=== PATIENT | male | born 1955 | race Caucasian/White ===

== ENCOUNTER → 2017-08-27 | Outpatient (CLI) | payer MEDICARE, OTHER ==
--- NOTE | 2017-08-27 16:11 | NM ---
EXAMINATION TYPE: NM bone 3 phase DATE OF EXAM: 08/27/2017 COMPARISON: Prior bone scan dated 06/05/2010 HISTORY: R 93.8 Triple phase bone scintigraphy was performed following the injection of 24.1 mCi Tc 99m MDP. Immedia te images and 3 hours post injection images acquired. FINDINGS: Increased blood flow and blood pool imaging to the mid foot on the right compared to the left. Delaye d imaging also shows uptake at this level. Uptake in the first digit of the right foot is likely due to osteoarthritic change. IMPRESSION: Degenerative changes are suspected. Indeterminate midfoot uptake on the right, difficult to exclude i nfection. Foot MRI of benefit.
== END | disposition home or self-care (01) ==
LOC: RADNMMAIN 10:03
PROVIDERS: ATTEND Internal Medicine
DX: R93.7 Abnormal findings on diagnostic imaging of other parts of musculoskeletal system (principal)
CPT/HCPCS: 78315; A9503

== ENCOUNTER 2017-10-22 11:32 | Observation (INO) | payer MEDICARE, OTHER ==
[2017-10-22] MEDS ORDERED: NITROGLYCERIN OINT 1 INCH/GM PACKET TOPICAL STA (11:43)
[2017-10-22] MEDS ORDERED: ASPIRIN 81 MG PO STA (11:43)
--- NOTE | 2017-10-22 11:50 | ED ---
General Adult HPI - General Chief complaint: Chest Pain Stated complaint: chest pain Time Seen by Provider: 10/22/17 11:36 Source: patient, EMS, RN notes reviewed, Caregiver Mode of arrival: EMS Limitations: altered mental status - History of Present Illness Initial comments: Patient is a pleasant [age]-year-old male presenting to the emergency Department with chest discomfort. Onset of symptoms was around an hour prior to arrival. No history of similar symptoms previously. Discomfort is described as an ache. There is no radiation. Discomfort is left lower chest. No associated dyspnea, nausea, or diaphoresis. Discomfort was moderate however now is mild. Patient has limited knowledge of his past medical history. - Related Data Home Medications Medication Instructions Recorded Confirmed Amiodarone [Cordarone] 100 mg PO DAILY 07/28/14 02/03/17 Aspirin 81 mg PO DAILY 07/28/14 02/03/17 Cyanocobalamin [Vitamin B-12] 1,000 mcg PO DAILY 07/28/14 02/03/17 Ezetimibe [Zetia] 10 mg PO HS 07/28/14 02/03/17 Furosemide [Lasix] 20 mg PO DAILY 07/28/14 02/03/17 Loratadine [Claritin] 10 mg PO DAILY 07/28/14 02/03/17 Metoprolol Tartrate [Lopressor] 25 mg PO BID 07/28/14 02/03/17 Potassium Chloride [Klor-Con 10] 10 meq PO DAILY 07/28/14 02/03/17 Pravastatin Sodium [Pravachol] 40 mg PO HS 07/28/14 02/03/17 QUEtiapine [SEROquel] 200 mg PO BID 07/28/14 02/03/17 Triamcinolone 0.1% Cream [Kenalog 1 applic TOPICAL DAILY 07/28/14 02/03/17 0.1% Cream] Warfarin [Coumadin] 5 mg PO [id number] 07/28/14 02/03/17 Vitamin B Complex 1 cap PO DAILY 09/27/14 02/03/17 Cholecalciferol (Vitamin D3) 2,000 unit PO DAILY 02/03/17 02/03/17 [Vitamin D3] Clotrimazole Cream [Lotrimin Cream] 1 applic TOPICAL BID 02/03/17 02/03/17 Fluvastatin Sodium 20 mg PO MOWEFR 02/03/17 02/03/17 Hydrocerin Cream 1 applic TOPICAL DAILY 02/03/17 02/03/17 Warfarin Sodium [Coumadin] 7.5 mg PO HOLLOWAY 02/03/17 02/03/17 Previous Rx's Medication Instructions Recorded Losartan [Cozaar] 12.5 mg PO DAILY #90 tab 06/03/15 ceFAZolin [Kefzol] 2 gm IVP Q8HR #90 bag 02/09/17 Acetaminophen Tab [Tylenol] 650 mg PO Q4HR PRN tab 02/10/17 Ipratropium-Albuterol Nebulize 3 ml INHALATION RT-QID ampul.neb 02/10/17 [Duoneb 0.5 mg-3 mg/3 ml Soln] Pantoprazole [Protonix] 40 mg PO DAILY tablet. 02/10/17 Allergies Allergy/AdvReac Type Severity Reaction Status Date / Time No Known Allergies Allergy Verified 10/22/17 11:41 Review of Systems ROS Statement: Those systems with pertinent positive or pertinent negative responses have been documented in the HPI. ROS Other: All systems not noted in ROS Statement are negative. Constitutional: Denies: fever Eyes: Denies: eye pain ENT: Denies: ear pain Respiratory: Denies: cough Cardiovascular: Reports: chest pain Endocrine: Denies: fatigue Gastrointestinal: Denies: abdominal pain Genitourinary: Denies: dysuria Musculoskeletal: Denies: back pain Skin: Denies: rash Neurological: Denies: weakness Past Medical History Past Medical History: Atrial Fibrillation, Heart Failure, COPD, Dementia, Hyperlipidemia, Hypertension, Memory Impairment, Pneumonia, Vascular Disorder Additional Past Medical History / Comment(s): Mild retardation, severe short term memory issues, vascular dementia with past delusions, needs alot of reminding and prompting, has a legal public guardian, nonischemic cardiomyopathy , chronic CHF, VF with cardiac arrest in 2005 (AICD placed), past cellulitis bilateral lower legs with venous ulcerations-now healed, incontinent of urine at times-prompt to remind to use bathroom and he will go on toilet. History of Any Multi-Drug Resistant Organisms: None Reported, MRSA Date of last positivie culture/infection: 2015 MDRO Source:: AICD site per caregiver. Past Surgical History: AICD, Cardiac Valve Replacement, Heart Catheterization Additional Past Surgical History / Comment(s): 2006 AICD with gen change in 2016 , aortic valve replacement, mitral valve repain, colonoscopy. Past Anesthesia/Blood Transfusion Reactions: No Reported Reaction Additional Past Anesthesia/Blood Transfusion Reaction / Comment(s): unknown family hx or blood transfusion hx Type of Cardiac Device: Permanent Pacemaker Device Placement Date:: 2005 implanted with gen change in 2015 Past Psychological History: Anxiety, Depression Smoking Status: Never smoker Past Alcohol Use History: None Reported Past Drug Use History: None Reported - Past Family History Father History Unknown: Yes Mother History Unknown: Yes Family Medical History: No Reported History General Exam Limitations: altered mental status General appearance: alert, in no apparent distress Head exam: Present: atraumatic Eye exam: Present: normal appearance, PERRL ENT exam: Present: normal oropharynx Neck exam: Present: normal inspection Respiratory exam: Present: normal lung sounds bilaterally Cardiovascular Exam: Present: bradycardia, systolic murmur Expanded Peripheral pulses: 2+: Radial (R), Radial (L), Posterior Tibialis (R), Posterior Tibialis (L) GI/Abdominal exam: Present: soft. Absent: tenderness Extremities exam: Absent: pedal edema, calf tenderness Neurological exam: Present: alert Psychiatric exam: Present: normal affect, normal mood Skin exam: Absent: rash Course Vital Signs 10/22/17 11:39 Temperature 97.1 F L Pulse Rate 51 L Respiratory 16 Rate Blood Pressure 102/60 O2 Sat by Pulse 95 Oximetry EKG Findings - EKG Comments: EKG Findings:: Sinus bradycardia 51. MS 152. QRS 102. QT 466. QTc 429. Normal axis. Normal QRS. Lateral T wave inversion. Medical Decision Making - Medical Decision Making Patient reevaluated and resting comfortably in bed. Patient and liability analyst updated on results and plan. Dr. Cerna has been paged for admission for Dr. Miller. - Lab Data Result diagrams: 10/22/17 11:46 10/22/17 11:46 Lab Results 10/22/17 10/22/17 10/22/17 Range/Units 11:46 11:46 11:46 WBC 6.5 (3.8-10.6) k/uL RBC 5.08 (4.30-5.90) m/uL Hgb 14.6 (13.0-17.5) gm/dL Hct 45.0 (39.0-53.0) % MCV 88.6 (80.0-100.0) fL MCH 28.8 (25.0-35.0) pg MCHC 32.5 (31.0-37.0) g/dL RDW 14.8 (11.5-15.5) % Plt Count 225 (150-450) k/uL Neutrophils % 57 % Lymphocytes % 32 % Monocytes % 6 % Eosinophils % 2 % Basophils % 1 % Neutrophils # 3.7 (1.3-7.7) k/uL Lymphocytes # 2.1 (1.0-4.8) k/uL Monocytes # 0.4 (0-1.0) k/uL Eosinophils # 0.2 (0-0.7) k/uL Basophils # 0.1 (0-0.2) k/uL PT (9.0-12.0) sec INR (<1.2) APTT (22.0-30.0) sec Sodium 140 (137-145) mmol/L Potassium 4.5 (3.5-5.1) mmol/L Chloride 107 (98-107) mmol/L Carbon Dioxide 24 (22-30) mmol/L Anion Gap 9 mmol/L BUN 15 (9-20) mg/dL Creatinine 0.90 (0.66-1.25) mg/dL Est GFR (CKD-EPI)AfAm >90 (>60 ml/min/1.73 sqM) Est GFR (CKD-EPI)NonAf >90 (>60 ml/min/1.73 sqM) Glucose 99 (74-99) mg/dL Calcium 8.6 (8.4-10.2) mg/dL Magnesium 2.1 (1.6-2.3) mg/dL Total Bilirubin 0.6 (0.2-1.3) mg/dL AST 22 (17-59) U/L ALT 30 (21-72) U/L Alkaline Phosphatase 97 (38-126) U/L Total Creatine Kinase 36 L (55-170) U/L CK-MB (CK-2) 0.7 (0.0-2.4) ng/mL CK-MB (CK-2) Rel Index 1.9 Troponin I <0.012 (0.000-0.034) ng/mL Total Protein 6.8 (6.3-8.2) g/dL Albumin 3.7 (3.5-5.0) g/dL 10/22/17 Range/Units 11:46 WBC (3.8-10.6) k/uL RBC (4.30-5.90) m/uL Hgb (13.0-17.5) gm/dL Hct (39.0-53.0) % MCV (80.0-100.0) fL MCH (25.0-35.0) pg MCHC (31.0-37.0) g/dL RDW (11.5-15.5) % Plt Count (150-450) k/uL Neutrophils % % Lymphocytes % % Monocytes % % Eosinophils % % Basophils % % Neutrophils # (1.3-7.7) k/uL Lymphocytes # (1.0-4.8) k/uL Monocytes # (0-1.0) k/uL Eosinophils # (0-0.7) k/uL Basophils # (0-0.2) k/uL PT 18.0 H (9.0-12.0) sec INR 2.0 H (<1.2) APTT 32.6 H (22.0-30.0) sec Sodium (137-145) mmol/L Potassium (3.5-5.1) mmol/L Chloride (98-107) mmol/L Carbon Dioxide (22-30) mmol/L Anion Gap mmol/L BUN (9-20) mg/dL Creatinine (0.66-1.25) mg/dL Est GFR (CKD-EPI)AfAm (>60 ml/min/1.73 sqM) Est GFR (CKD-EPI)NonAf (>60 ml/min/1.73 sqM) Glucose (74-99) mg/dL Calcium (8.4-10.2) mg/dL Magnesium (1.6-2.3) mg/dL Total Bilirubin (0.2-1.3) mg/dL AST (17-59) U/L ALT (21-72) U/L Alkaline Phosphatase (38-126) U/L Total Creatine Kinase (55-170) U/L CK-MB (CK-2) (0.0-2.4) ng/mL CK-MB (CK-2) Rel Index Troponin I (0.000-0.034) ng/mL Total Protein (6.3-8.2) g/dL Albumin (3.5-5.0) g/dL - Radiology Data Radiology results: image reviewed (Chest x-ray shows cardiomegaly. There is also some central vascular congestion) Disposition Clinical Impression: Chest pain Disposition: ADMITTED IP TO THIS HOSP Is patient prescribed a controlled substance at d/c from ED?: No Referrals: Silver Garvin MD [Primary Care Provider] - 1-2 days Decision Time: 12:34
[2017-10-22 11:58] LABS: Basophils # (A) 0.1 k/uL (0-0.2); Basophils % (A) 1 %; Eosinophils # (A) 0.2 k/uL (0-0.7); Eosinophils % (A) 2 %; HGB 14.6 gm/dL (13.0-17.5); Lymphocytes # (A) 2.1 k/uL (1.0-4.8); Lymphocytes % (A) 32 %; MCH 28.8 pg (25.0-35.0); MCHC 32.5 g/dL (31.0-37.0); MCV 88.6 fL (80.0-100.0); Mean Platelet Volume 7.2; Monocytes # (A) 0.4 k/uL (0-1.0); Monocytes % (A) 6 %; Neutrophils # (A) 3.7 k/uL (1.3-7.7); Neutrophils % (A) 57 %; Platelet Count 225 k/uL (150-450); RBC 5.08 m/uL (4.30-5.90); RDW 14.8 % (11.5-15.5); WBC 6.5 k/uL (3.8-10.6)
[2017-10-22 12:10] LABS: ALT 30 U/L (21-72); AST 22 U/L (17-59); Albumin 3.7 g/dL (3.5-5.0); Alkaline Phosphatase 97 U/L (38-126); Anion Gap 9 mmol/L; Blood Urea Nitrogen 15 mg/dL (9-20); Calcium 8.6 mg/dL (8.4-10.2); Carbon Dioxide 24 mmol/L (22-30); Chloride 107 mmol/L (98-107); Glucose 99 mg/dL (74-99); Magnesium 2.1 mg/dL (1.6-2.3); Potassium 4.5 mmol/L (3.5-5.1); Sodium 140 mmol/L (137-145); Total Bilirubin 0.6 mg/dL (0.2-1.3); Total Protein 6.8 g/dL (6.3-8.2)
[2017-10-22 12:16] LABS: Partial Thromboplastin Time 32.6 sec (22.0-30.0)
[2017-10-22 12:18] LABS: Creatine Kinase 36 U/L (55-170)
--- NOTE | 2017-10-22 12:19 | XR ---
EXAMINATION TYPE: XR chest 2V DATE OF EXAM: 10/22/2017 COMPARISON: Chest x-ray February 06, 2017 HISTORY: Chest pain today TECHNIQUE: Frontal and lateral views of the chest are obtained. FINDINGS: The cardiac silhouette size remains enlarged with single lead pacemaker/AICD. Curvilinear surgical change to cardiac valve is redemonstrated. There is new mild to moderate central vascular c ongestion. There is no new suspicious focal airspace opacity or pneumothorax seen bilaterally The oss eous structures are intact. IMPRESSION: Suspect CHF exacerbation as there is cardiomegaly with new mild to moderate central vasc ular congestion felt present. Correlate clinically.
[2017-10-22 12:29] LABS: Creatine Kinase MB 0.7 ng/mL (0.0-2.4); Troponin I <0.012 ng/mL (0.000-0.034)
[2017-10-22] MEDS ORDERED: NITROGLYCERIN SL TABS 0.4 MG TAB SUBLINGUAL PRN (12:34)
[2017-10-22] MEDS ORDERED: NITROGLYCERIN OINT 1 INCH/GM PACKET TOPICAL SCH (18:00)
[2017-10-22 18:27] LABS: Creatine Kinase 38 U/L (55-170)
[2017-10-22 18:37] LABS: Creatine Kinase MB 0.7 ng/mL (0.0-2.4); Troponin I <0.012 ng/mL (0.000-0.034)
[2017-10-22] MEDS ORDERED: EZETIMIBE 10 MG TAB PO SCH (21:00)
[2017-10-22] MEDS ORDERED: WARFARIN 5 MG TAB PO SCH (21:00)
[2017-10-22] MEDS ORDERED: CYANOCOBALAMIN 500 MCG TAB PO SCH (21:00)
[2017-10-22] MEDS ORDERED: CHOLECALCIFEROL 1,000 UNIT TAB PO SCH (21:00)
[2017-10-22] MEDS ORDERED: PRAVASTATIN SODIUM 40 MG TAB PO SCH (21:00)
[2017-10-22] MEDS ORDERED: NON-FORMULARY DRUG (Vitamin B Complex [Vitamin B Complex] 1 CAP) PO SCH (21:00)
[2017-10-22] MEDS: METOPROLOL TARTRATE 25 MG TAB PO SCH (21:36)
[2017-10-22] MEDS: QUEtiapine 200 MG TAB PO SCH (21:37)
--- NOTE | 2017-10-22 23:10 | HP ---
HISTORY AND PHYSICAL DATE OF ADMISSION: 10/22/2017 PRESENTING COMPLAINT: Abdominal pain. HISTORY OF PRESENTING COMPLAINT: This is a pleasant 62-year-old patient who is a bit of a limited historian. Patient follows with Dr. Silver Garvin. Per previous notes, he was a resident of [facility] and at that time he had a legal guardian out of [place]. Chronic stable medical conditions include atrial fibrillation congestive heart failure, COPD, some mild retardation, hypertension, hyperlipidemia, aortic valve replacement, mitral valve repair, some incontinence. In the past patient had a cardiac arrest with AICD in place. The patient was brought in by the EMS and patient had complained of chest pain, apparently was holding the left side of his chest wall. Here the patient is holding his hand over his belly and says he has pain there. He states it does not radiate. There is no nausea, vomiting. The patient did tolerate his supper. Patient is not sure if he had a bowel movement. No nausea, vomiting. No fever or chills. REVIEW OF SYSTEMS: CONSTITUTIONAL: None. HEENT: None. RESPIRATORY: None. CARDIOVASCULAR: As above. GASTROINTESTINAL: As above. GENITOURINARY: None. MUSCULOSKELETAL: None. DERMATOLOGICAL: None. HEMATOLOGICAL: None. LYMPHATICS: None. PSYCHIATRY: Forgetful. NEUROLOGICAL: None. PAST MEDICAL HISTORY: 1. Atrial fibrillation. 2. Congestive heart failure. 3. Dementia. 4. Hyperlipidemia. 5. Hypertension. 6. Memory impairment. 7. Mild retardation with short-term memory. Needs a lot of reminding and prompting. 8. Non-ischemic cardiomyopathy. 9. VF with cardiac arrest in 2016. 10.AICD. 11.Incontinent of urine at times. PAST SURGICAL HISTORY: 1. AICD. 2. Cardiac valve replacement. 3. Aortic valve replacement. 4. Mitral valve repair. PSYCH HISTORY: Anxiety and depression. SOCIAL HISTORY: The patient has resided at [facility] for the past 3 years. Telephone number . No smoking. No alcohol. FAMILY HISTORY: Patient cannot tell. HOME MEDICATIONS: 1. Kenalog 0.1% cream 1 application topically daily. 2. Hydrocerin 1 application topically daily. 3. Lotrimin 1 application topically b.i.d. 4. Coumadin 5 mg Wednesday, Wednesday, Wednesday, , Wednesday, Wednesday and 7.5 on Wednesday. 5. Pravachol 40 mg at bedtime. 6. Zetia 10 mg at bedtime. 7. Vitamin D3 2000 units p.o. at bedtime. 8. Vitamin B complex 1 capsule p.o. at bedtime. 9. Seroquel 200 mg p.o. b.i.d. 10.Lopressor 25 p.o. b.i.d. 11.Cozaar 12.5 p.o. daily. 12.Vitamin B12 1000 mcg p.o. at bedtime. 13.Potassium 10 mEq a day. 14.Ativan 0.5 p.o. t.i.d. 15.Cordarone 100 mg p.o. daily. 16.Claritin 10 mg p.o. daily. 17.Lasix 20 mg p.o. daily. 18.Aspirin 81 mg p.o. daily. ALLERGIES: NONE. PHYSICAL EXAMINATION: Temperature 98.2, pulse 61, respiration 16, blood pressure 117/75, pulse ox 93% on room air. GENERAL APPEARANCE: Well built; BMI 35.9. Sitting up on a chair, comfortable. EYES: Pupils equal. Conjunctivae normal. HEENT: External appearance of nose and ears normal. Oral cavity normal. NECK: JVD not raised. Mass not palpable. RESPIRATORY: Effort normal. LUNGS: Fair air entry. CARDIOVASCULAR: First and second sounds normal. No edema. ABDOMEN: Distended, soft. Liver and spleen not palpable. LYMPHATIC: No lymph node palpable in neck or axillae. PSYCHIATRY: Alert and oriented x3. Able to answer simple questions. NEUROLOGICAL: Pupils equal. Cranial nerves grossly intact. Power and sensation grossly intact. INVESTIGATIONS: White count 6.5, hemoglobin 14.6, potassium 4.5. INR is 2. BUN and creatinine are normal. Troponin x2 negative. ProBNP 247. EKG tracing reviewed by me shows normal sinus rhythm, some nonspecific T-wave changes. Chest x-ray film interpreted by me shows some cardiomegaly, maybe some venous prominence. ASSESSMENT: 1. Patient presented with left-sided chest pain complaint at the detention, but here patient is pointing toward his upper abdomen. This may be an episode of dyspepsia, but because of the patient's mild mental retardation, he is not a very reliable historian. Patient's proBNP is only 245. Troponins are negative. EKG is nonspecific. There does not appear to be any CHF exacerbation. 2. Chronic congestive heart failure from diastolic dysfunction, ejection fraction 50% to 55%. 3. Paroxysmal atrial fibrillation, chronically on Coumadin, currently in sinus rhythm. 4. Chronic obstructive pulmonary disease. 5. Chronic mild mental retardation. 6. Hyperlipidemia. 7. Chronic urine incontinence. 8. History of aortic valve replacement and mitral valve repair. PLAN: Home medications are resumed. Will watch the patient overnight. I have discontinued the nitroglycerin paste. The patient is not complaining of any chest pain. The patient is already on Coumadin. Will 4 doses of simethicone for dyspepsia. Watch the patient overnight to see how he does. Patient did tolerate his supper. MMKIML / IJN: [id number] /
[2017-10-22] MEDS: CLOTRIMAZOLE 1% CREAM 15 GM TUBE TOPICAL SCH (23:15)
[2017-10-22 23:47] VITALS: RESP 18
[2017-10-22 23:56] LABS: Creatine Kinase 36 U/L (55-170)
[2017-10-22] MEDS: SIMETHICONE 80 MG CHEWABLE PO SCH (23:58)
[2017-10-23 00:08] LABS: Creatine Kinase MB 0.7 ng/mL (0.0-2.4); Troponin I <0.012 ng/mL (0.000-0.034)
[2017-10-23 07:33] LABS: Cholesterol 192 mg/dL (<200); HDL Cholesterol 23 mg/dL (40-60); LDL Cholesterol,Calculated 132 mg/dL (0-99); Triglycerides 186 mg/dL (<150)
[2017-10-23] MEDS: QUEtiapine 200 MG TAB PO SCH (08:27)
[2017-10-23] MEDS: SIMETHICONE 80 MG CHEWABLE PO SCH ×2 (08:28→13:02)
[2017-10-23] MEDS: LORazepam 0.5 MG TAB PO SCH ×2 (08:28→12:33)
[2017-10-23] MEDS: CLOTRIMAZOLE 1% CREAM 15 GM TUBE TOPICAL SCH (08:32)
[2017-10-23] MEDS ORDERED: TRIAMCINOLONE 0.1% CREAM 80 GM TUBE TOPICAL SCH (09:00)
[2017-10-23] MEDS ORDERED: AMIODARONE 100 MG TAB PO SCH (09:00)
[2017-10-23] MEDS ORDERED: POTASSIUM CHLORIDE ER 10 MEQ TAB.ER.PRT PO SCH (09:00)
[2017-10-23] MEDS ORDERED: LOSARTAN 25 MG TAB PO SCH (09:00)
[2017-10-23] MEDS ORDERED: FUROSEMIDE 20 MG TAB PO SCH (09:00)
[2017-10-23] MEDS ORDERED: ASPIRIN 325 MG TAB PO SCH (09:00)
[2017-10-23] MEDS ORDERED: ASPIRIN 81 MG PO SCH (09:00)
[2017-10-23] MEDS: METOPROLOL TARTRATE 25 MG TAB PO SCH (12:33)
[2017-10-23 16:07] VITALS: BP 114/70; PULSE 56; TEMP 97.9
--- NOTE | 2017-10-24 08:16 | DS ---
DISCHARGE SUMMARY DATE OF ADMISSION: 10/22/2017. DATE OF DISCHARGE: 10/23/2017. FINAL DIAGNOSES: 1. Abdominal pain, probably from dyspepsia. 2. Chronic congestive heart failure from diastolic dysfunction. Ejection fraction 50% to 55%. 3. Paroxysmal atrial fibrillation, chronically on Coumadin, currently in sinus rhythm. 4. Chronic obstructive pulmonary disease. 5. Chronic mild mental retardation. 6. Hyperlipidemia. 7. Chronic urine incontinence. 8. History of aortic and mitral valve repair. HOSPITAL COURSE: This patient who is slightly mentally retarded, presented with what was reported as chest pain. The patient is pointing to his belly. Patient did well here. Did tolerate his diet, up and about. The patient was afebrile. Normal white count. On examination, afebrile, blood pressure 104/70. Lungs are clear. Abdomen soft nontender. DISCHARGE MEDICATIONS: 1. Cordarone 100 mg a day. 2. Aspirin 81 mg a day. 3. Vitamin B12, 1000 mcg p.o. at bedtime. 4. Zetia 10 mg p.o. at bedtime. 5. Lasix 20 mg a day. 6. Lopressor 25 mg p.o. b.i.d. 7. Potassium 10 mEq a day. 8. Pravachol 40 mg at bedtime. 9. Seroquel 200 mg b.i.d. 10.Kenalog 0.1% topical daily. 11.Coumadin 5 mg Wednesday, Wednesday, Wednesday, , Wednesday, Wednesday. 12.Vitamin B complex 1 capsule p.o. at bedtime. 13.Cozaar 12.5 p.o. daily. 14.Vitamin D3, 2000 units p.o. at bedtime. 15.Lotrimin 1 application topical b.i.d. 16.Hydrocerin 1 application topical daily. 17.Coumadin 7.5 p.o. on Wednesday. 18.Ativan 0.5 p.o. t.i.d. 19. 40 mg q.i.d. p.r.n. FOLLOWUP: Follow up with Dr. Garvin in 3 days. DISPOSITION: jail. MMODL / IJN: [id number] /
[2017-10-25] MEDS ORDERED: WARFARIN 7.5 MG TAB PO SCH (18:00)
== END 2017-10-23 17:19 | disposition home or self-care (01) ==
LOC: EC 11:32 → 3OBS 12:35
PROVIDERS: ADMIT Hospitalist; ATTEND Hospitalist
DX: R10.13 Epigastric pain (principal); R07.89 Other chest pain; F70 Mild intellectual disabilities; I11.0 Hypertensive heart disease with heart failure; I50.32 Chronic diastolic (congestive) heart failure; I43 Cardiomyopathy in diseases classified elsewhere; I48.0 Paroxysmal atrial fibrillation; J44.9 Chronic obstructive pulmonary disease, unspecified; F01.50 Vascular dementia, unspecified severity, without behavioral disturbance, psychotic disturbance, mood disturbance, and anxiety; R41.3 Other amnesia; R32 Unspecified urinary incontinence; E78.5 Hyperlipidemia, unspecified; F32.9 Major depressive disorder, single episode, unspecified; F41.9 Anxiety disorder, unspecified; Z79.01 Long term (current) use of anticoagulants; Z79.82 Long term (current) use of aspirin; Z79.899 Other long term (current) drug therapy; Z95.810 Presence of automatic (implantable) cardiac defibrillator; Z95.2 Presence of prosthetic heart valve; Z86.74 Personal history of sudden cardiac arrest; Z87.01 Personal history of pneumonia (recurrent); Z86.14 Personal history of Methicillin resistant Staphylococcus aureus infection
CPT/HCPCS: 99285 ×2; 36415; 93005; 83880; 80061; 80053; 82550; 82553; 83735; 84484; 85025; 85610; 85730; 71046; G0378 ×2

== ENCOUNTER → 2020-01-04 | Outpatient (CLI) | payer MEDICARE, OTHER ==
[2020-01-04 10:05] LABS: Potassium 4.7 mmol/L (3.5-5.1)
[2020-01-04 10:09] LABS: HCT 51.3 % (39.0-53.0); HGB 16.8 gm/dL (13.0-17.5); MCH 29.1 pg (25.0-35.0); MCHC 32.7 g/dL (31.0-37.0); MCV 88.9 fL (80.0-100.0); Mean Platelet Volume 7.9; Platelet Count 273 k/uL (150-450); RBC 5.77 m/uL (4.30-5.90); RDW 14.9 % (11.5-15.5)
== END | disposition home or self-care (01) ==
LOC: LABPAT 09:08
PROVIDERS: ATTEND Internal Medicine
DX: Z01.818 Encounter for other preprocedural examination (principal); I25.10 Atherosclerotic heart disease of native coronary artery without angina pectoris
CPT/HCPCS: 36415; 82565; 84132; 84520; 85027

== ENCOUNTER → 2020-01-10 | Day surgery (SDC) | payer MEDICARE, OTHER ==
[2020-01-05 14:53] VITALS: BMI 37.5
[~2020-01-10] MED LIST: ALPRAZolam 0.25 MG TAB PO PRN; ALPRAZolam 0.5 MG TAB PO PRN; ASPIRIN 325 MG TAB PO STA; ATORVASTATIN 80 MG TAB PO STA; HEPARIN SODIUM 1,000 UN/ML (10ML VL) IV ONE; HEPARIN SODIUM 1,000 UN/ML (10ML VL) ONE; IOPAMIDOL-370 100ML BTL INJ ONE; IOPAMIDOL-370 125ML BTL INJ ONE; IV FLUID CONTINUATION 1,000 ML IV ONE; LIDOCAINE 1% INJ 10MG/ML (20 ML MDV) ONE; LIDOCAINE 1% INJ 10MG/ML (20 ML MDV) SQ ONE; MIDAZOLAM 2 MG/2 ML VIAL IVP ONE; NITROGLYCERIN SL TABS 0.4 MG TAB SUBLINGUAL PRN; RX INFO: IV CONTRAST WAS GIVEN 1 EACH MISC MISCELLANE PRN; SODIUM CHLORIDE 0.9% 1,000 ML IV ONE; SODIUM CHLORIDE 0.9% 1,000 ML in EMPTY BAG 1 BAG IV ONE; VERAPAMIL 2.5 MG/ML 2 ML AMP ONE; fentaNYL (PF) 50 MCG/ML 2 ML AMP IVP ONE; fentaNYL (PF) 50 MCG/ML 2 ML AMP ONE
[2020-01-10 07:01] VITALS: TEMP 98.4
[2020-01-10 07:08] LABS: Basophils # (A) 0.2 k/uL (0-0.2); Basophils % (A) 2 %; Eosinophils # (A) 0.1 k/uL (0-0.7); Eosinophils % (A) 1 %; HCT 50.4 % (39.0-53.0); HGB 16.4 gm/dL (13.0-17.5); Lymphocytes # (A) 1.9 k/uL (1.0-4.8); Lymphocytes % (A) 24 %; MCH 28.7 pg (25.0-35.0); MCHC 32.6 g/dL (31.0-37.0); MCV 88.1 fL (80.0-100.0); Mean Platelet Volume 7.8; Monocytes # (A) 0.4 k/uL (0-1.0); Monocytes % (A) 5 %; Neutrophils # (A) 5.1 k/uL (1.3-7.7); Neutrophils % (A) 66 %; Platelet Count 254 k/uL (150-450); RBC 5.72 m/uL (4.30-5.90); RDW 14.7 % (11.5-15.5); WBC 7.7 k/uL (3.8-10.6)
[2020-01-10 07:16] LABS: INR 1.1 (<1.2); Prothrombin Time 11.3 sec (9.0-12.0)
[2020-01-10 07:20] LABS: Calcium 8.9 mg/dL (8.4-10.2); Potassium 4.8 mmol/L (3.5-5.1)
[2020-01-10] MEDS: VERAPAMIL SYRINGE (5 MG/10 ML) INTRAARTER ONE ×2 (07:46→08:32)
--- NOTE | 2020-01-10 08:51 | P.CARDCATH ---
Date of Procedure: 01/10/20 Description of Procedure: PROCEDURES PERFORMED: Bilateral coronary angiography, iFR of RCA INDICATION: Recurrent V. fib, severe aortic stenosis HISTORY: Patient is a pleasant 64-year-old male with history of recurrent V. fib status post AICD with multiple shocks, prior bioprosthetic aortic valve with restenosis with most recent echo showing severe aortic stenosis and some issues with cognitive abilities, memory impairment who presents for workup of recurrent V. fib and severe aortic stenosis. CONSENT:I have discussed the risks, benefits and alternative therapies for the above-mentioned procedure and for both sedation/analgesia as well as necessary blood product administration, if indicated, as they pertain to this patient. The patient has indicated understanding and acceptance of the risks and procedures discussed. PROCEDURE: After the risks, benefits and alternatives of the above mentioned procedure explained in detail with the patient and caregiver, informed consent was obtained. Patient was taken to the catheterization lab and prepped and draped in usual fashion. 1% lidocaine was used to anesthetize the right radial artery. A 6-Nigerian sheath was placed in the right radial artery using modified Seldinger technique. Left coronary angiography was performed with a 6-Nigerian AL 1.0 catheter and right coronary angiography was performed with a 6-Nigerian AR 1 catheter in various views. The RCA appeared 60-70% stenosis and therefore iFR was performed. A 6Fr AL 0.75 guide was used to engage the RCA. A 0.014 pressure wire was normalized and then advanced into the mid RCA and iFR measurement was performed at 0.98. There was no significant drift with pullback. The wire and catheter were then removed. The right radial sheath was removed and a TR band was placed with hemostasis achieved. The patient tolerated the procedure well. Patient was transported back to the post catheterization holding area in stable condition. Conscious Sedation: Patient was monitored under the direct supervision of vision of myself for conscious sedation using Versed and fentanyl for a total duration of 25 minutes HEMODYNAMICS: Ao: 121/81 SELECTIVE CORONARY ARTERIOGRAPHY: LEFT MAIN: The left main is a short, large caliber vessel which bifurcates into the LAD and circumflex. There is no significant stenosis. LEFT ANTERIOR DESCENDING CORONARY ARTERY: LAD is a large caliber vessel which wraps around to the apex. There is a mid 30% LAD stenosis. LEFT CIRCUMFLEX CORONARY ARTERY: Left circumflex is a moderate to large caliber vessel. There is a mid circumflex 50% stenosis after a moderate caliber OM1. There is no other significant stenosis. RIGHT CORONARY ARTERY: The right coronary artery is a large caliber vessel which gives off a PDA and PLV branch and is the dominant vessel. There is a proximal 60-70% stenosis. iFR of the lesion was normal at 0.98. There are tandem distal RCA 30 and 40% stenoses. FINAL IMPRESSION: 1. CAD as described above with 50% circumflex stenosis, proximal RCA 60-70% stenosis 2. Severe aortic stenosis by echo. PLAN: 1. Aggressive risk factor modification per most recent ACC/AHA guidelines. 2. Follow-up in the office in 1-2 weeks.
[2020-01-10] MEDS: BENZOCAINE SPRAY 1 CAN TOPICAL ONE ×2 (09:16→09:31)
[2020-01-10 11:00] VITALS: PULSE 45; RESP 16
[2020-01-10 12:04] VITALS: BP 121/72
--- NOTE | 2020-01-10 14:11 | P.GSCN ---
History of Present Illness Consult date: 01/10/20 Reason for Consult: Severe aortic stenosis with previous history of bioprosthetic aortic valve replacement Requesting physician: Yohannes Ordonez History of present illness: This is a 64-year-old mildly mentally disabled gentleman who lives in an adult snf and has a public guardian, he follows on an outpatient basis with Dr. Garvin for primary care and Dr. Ponce for cardiology and electrophysiology. He has a previous medical history of paroxysmal atrial fibrillation on Coumadin therapy, hypertension, hyperlipidemia, cardiac arrest in [address] of [facility] [facility] AICD, chronic diastolic heart failure, severe aortic stenosis status post bioprosthetic aortic valve replacement and tricuspid valve repair in April 2005, vascular dementia, and COPD. Apparently he has been having episodes of increased shortness of breath with exertion as well as recurrent V. fib with ICD shocks. He was taken off his Seroquel but continued to have V. fib with ICD shocks. His beta karthikeyan and amiodarone were increased. Transthoracic echocardiogram was completed in the cardiology office, report unavailable at this time, however documentation from Dr. Ponce indicated a mean gradient of 54 mmHg across the bioprosthetic aortic valve. He was recommended to undergo heart catheterization as well as transesophageal echocardiogram to determine cause of recurrent ventricular fibrillation. Heart catheterization was completed today demonstrating right coronary artery stenosis 60-70% with mid LAD stenosis 30% and mid circumflex stenosis of 50%, iFr was completed of the right coronary artery which was normal at 0.98. Transesophageal echocardiogram reportedly demonstrated EF 50%, severe stenosis of the patient's bioprosthetic aortic valve, mild mitral regurgitation and mild tricuspid regurgitation. Due to these findings consultation was placed to Dr. Ortiz for surgical recommendations. Review of Systems Review of systems was completed and was negative except as noted. Of note the patient is a poor historian with memory loss, review systems was completed with the patient's guardian. - Cardiovascular Reports decreased exercise tolerance, Reports dyspnea on exertion Past Medical History Past Medical History: Atrial Fibrillation, Coronary Artery Disease (CAD), Heart Failure, COPD, Dementia, Hyperlipidemia, Hypertension, Memory Impairment, Pneumonia, Vascular Disorder Additional Past Medical History / Comment(s): Mild retardation, severe short term memory issues, vascular dementia with past delusions, needs alot of reminding and prompting, has a legal public guardian, nonischemic cardiomyopathy, chronic CHF, VF with cardiac arrest in 2005 (AICD placed), past cellulitis bilateral lower legs with venous ulcerations-now healed, incontinent of urine at times-prompt to remind to use bathroom and he will go on toilet. History of Any Multi-Drug Resistant Organisms: MRSA Year Discovered:: 2016 MDRO Source:: AICD site per caregiver. Past Surgical History: AICD, Cardiac Valve Replacement, Heart Catheterization Additional Past Surgical History / Comment(s): 2005 AICD with gen change in 2015, bioprosthetic aortic valve replacement and tricuspid valve repair 04/2005, colonoscopy. Past Anesthesia/Blood Transfusion Reactions: Unable to Obtain Additional Past Anesthesia/Blood Transfusion Reaction / Comm: unknown family hx or blood transfusion hx Type of Cardiac Device: AICD Device Placement Date:: 2005 implanted with gen change in 2015 Smoking Status: Never smoker Past Alcohol Use History: None Reported Past Drug Use History: None Reported - Past Family History Father History Unknown: Yes Mother History Unknown: Yes Family Medical History: No Reported History Medications and Allergies Home Medications Medication Instructions Recorded Confirmed Type Amiodarone [Cordarone] 200 mg PO DAILY 07/28/14 01/10/20 History Aspirin 81 mg PO DAILY 07/28/14 01/10/20 History Cyanocobalamin [Vitamin B-12] 1,000 mcg PO HS 07/28/14 01/10/20 History Ezetimibe [Zetia] 10 mg PO HS 07/28/14 01/10/20 History Furosemide [Lasix] 20 mg PO DAILY 07/28/14 01/10/20 History Metoprolol Tartrate [Lopressor] 100 mg PO BID 07/28/14 01/10/20 History Pravastatin Sodium [Pravachol] 40 mg PO HS 07/28/14 01/10/20 History Triamcinolone 0.1% Cream [Kenalog 1 applic TOPICAL DAILY 07/28/14 01/10/20 History 0.1% Cream] Warfarin [Coumadin] 5 mg PO SUTUTHFR 07/28/14 01/10/20 History Vitamin B Complex 1 cap PO DAILY 09/27/14 01/10/20 History Losartan [Cozaar] 12.5 mg PO DAILY #90 tab 06/03/15 01/10/20 Rx Cholecalciferol (Vitamin D3) 2,000 unit PO DAILY 02/03/17 01/10/20 History [Vitamin D3] Clotrimazole Cream [Lotrimin Cream] 1 applic TOPICAL BID 02/03/17 01/10/20 History Hydrocerin Cream 1 applic TOPICAL DAILY 02/03/17 01/10/20 History Warfarin Sodium [Coumadin] 7.5 mg PO MOWESA 02/03/17 01/10/20 History LORazepam [Ativan] 0.5 mg PO TID@0800,1200,1730 10/22/17 01/10/20 History Albuterol Sulfate [Albuterol 2 puff PO Q6H PRN 01/05/20 01/05/20 History Sulfate Hfa] Bimatoprost [Lumigan .01% Ophth 1 drop BOTH EYES HS 01/05/20 01/10/20 History Soln] Loratadine [Claritin] 10 mg PO DAILY 01/05/20 01/10/20 History Potassium Chloride 10 meq PO DAILY 01/05/20 01/10/20 History Allergies Allergy/AdvReac Type Severity Reaction Status Date / Time No Known Allergies Allergy Verified 01/05/20 14:46 Surgical - Exam Vital Signs Temp Pulse BP Pulse Ox 98.4 F 47 L 117/77 94 L 01/10/20 06:59 01/10/20 06:59 01/10/20 06:59 01/10/20 06:59 - General well developed, well nourished, no distress, no pain, obese - Eyes normal ocular movement - ENT no hearing loss - Neck no masses, no bruits, trachea midline - Respiratory Lungs sounds clear bilaterally. Respirations even, nonlabored. Currently on room air with oxygen saturation 94%. No chest wall deformities. No clubbing or cyanosis present. - Cardiovascular S1, S2 present, systolic murmur heard. Slow but regular rate and rhythm, sinus bradycardia with heart rate in the 40s on telemetry. Palpable peripheral pulses bilaterally. No edema present. No calf pain or tenderness noted. Right radial heart catheterization site well approximated with T band in place - Abdomen Abdomen: soft, non tender, bowel sounds - Genitourinary Deferred - Rectum Deferred - Integumentary no rash, no growths - Neurologic normal coordination - Musculoskeletal normal posture - Psychiatric oriented to person, speech is normal Results - Labs 01/10/20 06:50 11/25/20 06:50 Abnormal Lab Results - Last 24 Hours (Table) 01/10/20 Range/Units 06:50 Glucose 105 H (74-99) mg/dL Diabetes panel 01/10/20 Range/Units 06:50 Sodium 138 (137-145) mmol/L Potassium 4.8 (3.5-5.1) mmol/L Chloride 106 (98-107) mmol/L Carbon Dioxide 25 (22-30) mmol/L BUN 17 (9-20) mg/dL Creatinine 1.13 (0.66-1.25) mg/dL Glucose 105 H (74-99) mg/dL Calcium 8.9 (8.4-10.2) mg/dL Calcium panel 01/10/20 Range/Units 06:50 Calcium 8.9 (8.4-10.2) mg/dL Pituitary panel 01/10/20 Range/Units 06:50 Sodium 138 (137-145) mmol/L Potassium 4.8 (3.5-5.1) mmol/L Chloride 106 (98-107) mmol/L Carbon Dioxide 25 (22-30) mmol/L BUN 17 (9-20) mg/dL Creatinine 1.13 (0.66-1.25) mg/dL Glucose 105 H (74-99) mg/dL Calcium 8.9 (8.4-10.2) mg/dL Adrenal panel 01/10/20 Range/Units 06:50 Sodium 138 (137-145) mmol/L Potassium 4.8 (3.5-5.1) mmol/L Chloride 106 (98-107) mmol/L Carbon Dioxide 25 (22-30) mmol/L BUN 17 (9-20) mg/dL Creatinine 1.13 (0.66-1.25) mg/dL Glucose 105 H (74-99) mg/dL Calcium 8.9 (8.4-10.2) mg/dL - Imaging Additional studies: Heart catheterization and EMMANUELLE films reviewed Assessment and Plan Assessment: 1. Severe aortic stenosis, status post bioprosthetic aortic valve replacement along with tricuspid valve repair in April 2005 2. Paroxysmal atrial fibrillation on Coumadin, currently in sinus bradycardia 3. Recent history of recurrent ventricular fibrillation with ICD shock 4. Hypertension 5. Hyperlipidemia 6. Cardiac arrest in [address] [facility] ICD 7. Chronic diastolic heart failure 8. Vascular dementia 9. COPD Plan: The patient was seen and examined in the extended stay unit. Chart/diagnostics were reviewed, heart catheterization films and transesophageal echocardiogram films were reviewed with Dr. Ortiz. On the transesophageal echocardiograms the aortic valve appears to be a 3 leaflet and moving well without significant calcification. If there is a gradient across the bioprosthetic valve it is like ly due to patient/prosthetic mismatch and is unlikely to be the cause of the patient's recurrent ventricular fibrillation. We would certainly be happy to see this patient in the structural heart clinic for further evaluation, however it is unclear at this time that transcatheter aortic valve replacement would be beneficial to the patient, likewise repeat surgical aortic valve replacement is not recommended. Continue medical management per primary care and Dr. Ponce. Please call us with any further questions. Thank you for this consult Time with Patient: Greater than 30
--- NOTE | 2020-01-10 16:00 | P.TEE ---
Description of Procedure(s): Procedure performed: Transesophageal Echocardiogram with color flow doppler, pulsed wave doppler and continuous wave doppler, moderate conscious sedation Moderate conscious sedation: Moderate conscious sedation was supplied with direct supervision of myself using Versed and Fentanyl. Complications: none Indications: Severe aortic stenosis by transthoracic echo, v fib History: Patient is a pleasant 64-year-old gentleman with history of ventricular tachycardia, V. fib status post AICD, prior bioprosthetic aortic valve repla cement and cognitive impairment who presents for evaluation of multiple episodes of V. fib with AICD firing. He had a transthoracic echo which showed concern of severe aortic stenosis. Therefore due to V. fib and severe aortic stenosis, heart catheterization and EMMANUELLE were recommended by primary family practice physician. PROCEDURE: After the risks, benefits and alternatives of the above mentioned procedure was explained in detail with the patient, informed consent was obtained. Patient was brought to the lab in a fasting state. Patient was given IV Versed and Fentanyl for sedation. The throat was sprayed with Hurricane to anesthetize the throat. A lubricated Omni probe was then introduced into the esophagus and stomach and multiple views were obtained. 2D echo with color flow doppler, pulsed wave doppler and continuous wave doppler was utilized. Agitated saline bubbles were injected to assess for any intra-atrial shunt. The probe was then removed. Patient tolerated the procedure well. Patient was transferred to the post procedure area in stable and satisfactory condition. FINDINGS: 1. There is a bioprosthetic aortic valve which does appear to have a smaller size given patient's [place] annulus. There is mild to moderate calcification and mild to moderate moderate decrease in leaflet excursion, however the aortic valve area by planimetry was 0.9 cm and the Vmax was 4.07 m/s and mean gradient 44.7mmHg consistent with severe aortic stenosis. Suspect majority of gradients related to patient prosthesis mismatch. 2. The mitral valve appears be normal with mild mitral regurgitation. 3. Tricuspid valve appears to be normal with trace tricuspid regurgitation. 4. The interatrial septum is intact. No evidence of PFO. 5. Left atrial appendage is free of clot. 6. Left ventricular size and function appears to be normal with ejection fraction 55%
== END ==
LOC: CATHCVL 06:25
PROVIDERS: ATTEND Internal Medicine
DX: I08.0 Rheumatic disorders of both mitral and aortic valves (principal); I47.2 Ventricular tachycardia; E78.5 Hyperlipidemia, unspecified; I42.8 Other cardiomyopathies; I48.21 Permanent atrial fibrillation; J44.9 Chronic obstructive pulmonary disease, unspecified; I11.0 Hypertensive heart disease with heart failure; I50.32 Chronic diastolic (congestive) heart failure; I25.10 Atherosclerotic heart disease of native coronary artery without angina pectoris; F01.50 Vascular dementia, unspecified severity, without behavioral disturbance, psychotic disturbance, mood disturbance, and anxiety; I48.0 Paroxysmal atrial fibrillation; Z95.2 Presence of prosthetic heart valve; Z79.82 Long term (current) use of aspirin; Z79.01 Long term (current) use of anticoagulants; Z79.899 Other long term (current) drug therapy; Z87.01 Personal history of pneumonia (recurrent); Z86.14 Personal history of Methicillin resistant Staphylococcus aureus infection; Z95.810 Presence of automatic (implantable) cardiac defibrillator
CPT/HCPCS: 93312; 93320; 93325; 93571; 93454; 85347; 80048; 85025; 85610; C1887; C1769; C1894; J2250; J2001; J3010; J1644; Q9967 ×2